=== PATIENT | female | born 1995 | race Caucasian/White ===

== ENCOUNTER 2016-11-15 10:57 | Emergency (ER) | payer OTHER ==
[~2016-11-15] VITALS: Ht 157.5 cm; Wt 60.1 kg
[~2016-11-15 10:57] MED LIST: MISCCAP80 PO
[2016-11-15 11:04] VITALS: Ht 157.5 cm; Wt 60.1 kg
[2016-11-15] MEDS ORDERED: ALBUT/IPRATROP 3MG/0.5MG NEB 3 ML VIAL INH STA (11:32)
[2016-11-15] MEDS ORDERED: ALBUT/IPRATROP 3MG/0.5MG NEB 3 ML VIAL ONE (11:33)
[2016-11-15 11:40] VITALS: O2SAT 99
[2016-11-15 11:54] LABS: BASO % 0.4 %; BASO ABS # 0.02 K/uL (0-0.2); COMPLETE YES; EOS % 2.4 %; HEMATOCRIT 39.8 % (37-47); LYMPH ABS # 1.85 K/uL (1.2-3.4); MEAN CELL VOLUME 88.8 fL (80-100); MEAN CORPUSCULAR HEMOGLOBIN 30.8 pg (25-34); MEAN CORPUSCULAR HGB CONC 34.7 g/dl (32-36); MEAN PLATELET VOLUME 9.8 fL (7.4-10.4); MONO % 8.2 %; PLATELET COUNT 176 K/uL (130-400); RED BLOOD COUNT 4.48 M/uL (4.2-5.4); WHITE BLOOD COUNT 4.62 K/uL (4.8-10.8)
--- NOTE | 2016-11-15 12:08 | DIAGNOSTIC IMAGING REPORT ---
CHEST ONE VIEW PORTABLE CLINICAL HISTORY: Shortness of breath and chest pain. COMPARISON STUDY: Chest radiograph July 29, 2016. FINDINGS: Lung volumes are normal. There is no pneumothorax or pleural effusion. Cardiac size is normal. Mediastinal contours are normal. There is no evidence of pulmonary edema. IMPRESSION: No acute cardiopulmonary findings. Electronically signed by: Tony Nava M.D. 11/15/2016 12:06 PM Dictated Date/Time: 11/15/2016 12:05 PM
[2016-11-15 12:09] LABS: BUN/CREATININE RATIO 10.8 (10-20); CALCIUM 9.2 mg/dl (8.5-10.1); CREATININE 0.83 mg/dl (0.60-1.20); POTASSIUM 3.8 mmol/L (3.5-5.1)
[2016-11-15 12:11] LABS: INR 0.9 (0.9-1.1); PROTHROMBIN TIME (PATIENT) 10.1 SECONDS (9.0-12.0)
[2016-11-15 12:13] LABS: ALB/GLOB RATIO 1.2 (0.9-2)
[2016-11-15] MEDS ORDERED: SODIUM CHLORIDE 0.9% 1000ML 1,000 ML IV STA (12:16)
[2016-11-15] MEDS ORDERED: OPTIRAY 320 IV PRN (12:30)
--- NOTE | 2016-11-15 13:00 | DIAGNOSTIC IMAGING REPORT ---
CT ANGIOGRAPHY OF THE CHEST, PULMONARY EMBOLUS PROTOCOL CLINICAL HISTORY: Difficulty breathing. Chest pain. Elevated d-dimer. COMPARISON STUDY: Chest CT November 23, 2015. TECHNIQUE: Following IV administration of 93 mL of Optiray-320, helical axial images of the chest were obtained utilizing the pulmonary embolus protocol. Maximal intensity projections and sagittal and coronal reformats were viewed on an independent 3D workstation. IV contrast was administered without complication. CT DOSE: 267.53 mGycm FINDINGS: No pulmonary emboli are identified. There is no evidence of thoracic aortic dissection. The size of the heart is normal. There is no pericardial effusion. There are no enlarged thoracic lymph nodes. The central airways are patent. No consolidation is present. There is no pneumothorax or pleural effusion. The bony thorax and upper abdomen are unremarkable. IMPRESSION: 1. No pulmonary emboli identified. 2. No acute intrathoracic findings. Electronically signed by: Tony Nava M.D. 11/15/2016 12:58 PM Dictated Date/Time: 11/15/2016 12:53 PM
--- NOTE | 2016-11-15 14:05 | EMERGENCY ROOM VISIT NOTE ---
ED Visit Note First contact with patient: 12:01 CHIEF COMPLAINT: Chest pain and slight shortness of breath 1 week HISTORY OF PRESENT ILLNESS: Patient is an otherwise healthy 21-year-old white female who presents to the emergency department for evaluation of left-sided chest pain. She states that her symptoms started about a week ago. They are located in the midsternal area, radiating slightly to the left. She states that it has been fairly constant in nature. She has tried to ache more the pain. She does know that it is slightly worse with deep breathing and she occasionally feels like she has to work hard to take a deep breath. She has been able to exercise, but notes the pain made it "difficult." She did not have to stop exercising due to her symptoms. She does note some discomfort through to her left back. She has not been ill with any upper respiratory symptoms, and denies cough, sputum production or wheezing. No fever or chills. She is on oral contraceptives, but does not smoke. She traveled 8 hours by car to [place] for . She does report a family history of "clots", but denies any specific diagnosis or diagnosed genetic clotting disorder. She rates her discomfort a 5/10. REVIEW OF SYSTEMS: Review of systems as per HPI. All other systems reviewed were negative. 10 systems reviewed. PMH: Electronic medical records are reviewed and summarized as above/below. See Problem List. SOCIAL HISTORY: Patient is a college from [place] who lives locally with roommates. Nonsmoker. Drinks alcohol socially. PHYSICAL EXAM: Vital Signs: Reviewed Nurse's notes. CONSTITUTIONAL: Patient is a well-appearing 21-year-old white female who is awake and alert and in no acute distress. EYES: Pupils equal, round, reactive to light and accommodation. EOMs intact without nystagmus. Sclera are anicteric. ENT: Tympanic membranes intact, with normal landmarks. External canals are clear. Oral and nasopharynx are clear. Mucous membranes are moist, no lesions , tongue and gums appear normal. NECK: No bruits auscultated. Supple without lymphadenopathy. No thyromegaly. No meningeal signs. Full active range of motion without discomfort. CARDIOVASCULAR: Regular rate and rhythm, with normal S1 and S2, no murmur or gallop or rub is heard. No carotid bruits auscultated. No JVD. Peripheral pulses easy to palpable. RESPIRATORY: Breath sounds equal and clear to auscultation without wheezes, rales, or rhonchi heard. Full and equal chest expansion without accessory muscle use or retractions. GI: Bowel sounds are present. Abdomen is soft, nontender, nondistended. No organomegaly. No pulsatile masses. No guarding or rebound. MUSCULOSKELETAL: Full range of motion of extremities x 4 with good strength. No cyanosis, edema, joint tenderness or swelling. No deformity. INTEGUMENTARY: No lesions or rash, normal skin turgor. NEUROLOGICAL: Alert, oriented, and cooperative. Cranial nerves, sensation and strength grossly intact. Pupils round, equal, and react to light, EOMs are full. LYMPH: No lymphadenopathy. EMERGENCY DEPARTMENT COURSE: The patient was seen and evaluated as above. Old records are reviewed. She does report that she has been here for chest pain in the past and has been told it is musculoskeletal in nature. Critical pathways had been implemented prior to my evaluation of the patient. She refused a DuoNeb. CBC with differential, CMP, coags, CK, CK-MB, [id number] d-dimer were performed. EKG was performed and was as noted below. EKG: Normal sinus rhythm at 75 beats per minute, no acute ischemic changes. No ectopy. Chest x-ray was unremarkable. Laboratory studies did not demonstrate any leukocytosis, anemia, electrolyte or liver function abnormalities. Cardiac enzymes are negative with symptoms greater than one week. Her d-dimer was elevated, and therefore CT angiography of the chest to evaluate for PE was ordered. Chest CT did not demonstrate any evidence for pulmonary embolus. The patient was reassured. Differential diagnosis includes acute myocardial infarction, acute coronary syndrome, myocarditis, pericarditis, pericardial effusions / tamponade, esophageal perforation, pulmonary embolism, pneumonia, pneumothorax , cardiomyopathy, congestive heart failure, anemia , COPD/asthma exacerbation, musculoskeletal, anxiety, costochondritis, among others. She was advised to rest and avoid any strenuous activity that exacerbate her symptoms and to follow up with her primary care provider if her symptoms are not improving. The patient rated her discomfort a 0/10 at discharge. CHEST ONE VIEW PORTABLE CLINICAL HISTORY: Shortness of breath and chest pain. COMPARISON STUDY: Chest radiograph July 29, 2016. FINDINGS: Lung volumes are normal. There is no pneumothorax or pleural effusion. Cardiac size is normal. Mediastinal contours are normal. There is no evidence of pulmonary edema. IMPRESSION: No acute cardiopulmonary findings. CT ANGIOGRAPHY OF THE CHEST, PULMONARY EMBOLUS PROTOCOL CLINICAL HISTORY: Difficulty breathing. Chest pain. Elevated d-dimer. COMPARISON STUDY: Chest CT November 23, 2015. TECHNIQUE: Following IV administration of 93 mL of Optiray-320, helical axial images of the chest were obtained utilizing the pulmonary embolus protocol. Maximal intensity projections and sagittal and coronal reformats were viewed on an independent 3D workstation. IV contrast was administered without complication. CT DOSE: 267.53 mGycm FINDINGS: No pulmonary emboli are identified. There is no evidence of thoracic aortic dissection. The size of the heart is normal. There is no pericardial effusion. There are no enlarged thoracic lymph nodes. The central airways are patent. No consolidation is present. There is no pneumothorax or pleural effusion. The bony thorax and upper abdomen are unremarkable. IMPRESSION: 1. No pulmonary emboli identified. 2. No acute intrathoracic findings. Problem List Medical Problems: (1) Abdominal pain Status: Resolved (2) Abdominal pain, left upper quadrant Status: Resolved (3) Chest pain Status: Resolved (4) Concussion Status: Resolved (5) Constipation Status: Resolved (6) Cough Status: Resolved (7) Dysuria Status: Resolved (8) LUQ abdominal pain Status: Resolved (9) Near syncope Status: Resolved (10) Precordial chest pain Status: Resolved (11) Right calf pain Status: Resolved (12) Shortness of breath Status: Resolved (13) Shortness of breath Status: Resolved (14) Sore throat Status: Resolved (15) Upper respiratory infection Status: Resolved Current/Historical Medications Scheduled Control Pills ( Control Pills), 1 TAB PO DAILY Allergies Coded Allergies: No Known Allergies (Unverified , 09/02/16) Vital Signs Date Time Temp Pulse Resp B/P Pulse Ox O2 Delivery O2 Flow Rate FiO2 11/15/16 14:24 36.9 65 20 99 Room Air 11/15/16 14:20 36.9 65 20 110/76 99 11/15/16 12:11 91 11/15/16 11:40 36.9 80 18 105/77 99 Room Air 11/15/16 11:40 99 Room Air 11/15/16 11:04 36.9 80 18 105/77 99 Room Air Laboratory Results 11/15/16 11:40 Red Blood Count 4.48, Mean Corpuscular Volume 88.8, Mean Corpuscular Hemoglobin 30.8, Mean Corpuscular Hemoglobin Concent 34.7, Mean Platelet Volume 9.8, Neutrophils (%) (Auto) 49.0, Lymphocytes (%) (Auto) 40.0, Monocytes (%) (Auto) 8.2, Eosinophils (%) (Auto) 2.4, Basophils (%) (Auto) 0.4, Neutrophils # (Auto) 2.26, Lymphocytes # (Auto) 1.85, Monocytes # (Auto) 0.38, Eosinophils # (Auto) 0.11, Basophils # (Auto) 0.02 11/15/16 11:40 Test 11/15/16 11:40 11/15/16 11:49 White Blood Count 4.62 K/uL (4.8-10.8) Red Blood Count 4.48 M/uL (4.2-5.4) Hemoglobin 13.8 g/dL (12.0-16.0) Hematocrit 39.8 % (37-47) Mean Corpuscular Volume 88.8 fL (80-100) Mean Corpuscular Hemoglobin 30.8 pg (25-34) Mean Corpuscular Hemoglobin Concent 34.7 g/dl (32-36) Platelet Count 176 K/uL (130-400) Mean Platelet Volume 9.8 fL (7.4-10.4) Neutrophils (%) (Auto) 49.0 % Lymphocytes (%) (Auto) 40.0 % Monocytes (%) (Auto) 8.2 % Eosinophils (%) (Auto) 2.4 % Basophils (%) (Auto) 0.4 % Neutrophils # (Auto) 2.26 K/uL (1.4-6.5) Lymphocytes # (Auto) 1.85 K/uL (1.2-3.4) Monocytes # (Auto) 0.38 K/uL (0.11-0.59) Eosinophils # (Auto) 0.11 K/uL (0-0.5) Basophils # (Auto) 0.02 K/uL (0-0.2) RDW Standard Deviation 41.9 fL (36.4-46.3) RDW Coefficient of Variation 13.0 % (11.5-14.5) Immature Granulocyte % (Auto) 0.0 % Immature Granulocyte # (Auto) 0.00 K/uL (0.00-0.02) Prothrombin Time 10.1 SECONDS (9.0-12.0) Prothromb Time International Ratio 0.9 (0.9-1.1) Activated Partial Thromboplast Time 25.2 SECONDS (21.0-31.0) Partial Thromboplastin Ratio 1.0 Anion Gap 11.0 mmol/L (3-11) Est Creatinine Clear Calc Drug Dose 84.8 ml/min Estimated GFR () 116.8 Estimated GFR (Non- 100.8 BUN/Creatinine Ratio 10.8 (10-20) Calcium Level 9.2 mg/dl (8.5-10.1) Total Bilirubin 0.5 mg/dl (0.2-1) Aspartate Amino Transf (AST/SGOT) 16 U/L (15-37) Alanine Aminotransferase (ALT/SGPT) 20 U/L (12-78) Alkaline Phosphatase 49 U/L (45-117) Total Creatine Kinase 58 U/L (26-192) Creatine Kinase MB 0.6 ng/ml (0.5-3.6) Creatine Kinase MB Ratio 1.0 (0-3.0) Total Protein 7.2 gm/dl (6.4-8.2) Albumin 3.9 gm/dl (3.4-5.0) Globulin 3.3 gm/dl (2.5-4.0) Albumin/Globulin Ratio 1.2 (0.9-2) Bedside D-Dimer > 450 ng/mlFEU (0-450) Medications Administered Medications (Trade) Dose Ordered Sig/Nghia Route Start Time Stop Time Status Last Admin Dose Admin Sodium Chloride (Nss 1000ml) 1,000 ml @ 999 mls/hr Q1H1M STAT IV 11/15/16 12:16 11/15/16 13:16 DC 11/15/16 12:47 999 MLS/HR Departure Information Impression Primary Impression: Chest pain Referrals [facility] (PCP) Patient Instructions My [facility] Additional Instructions Ibuprofen(Motrin, Advil) may be used for fever or pain. Use 600mg every six hours as needed. Take with food. Avoid using more than 2400mg in a 24 hour period. Do not use 2400mg per day for more than three consecutive days without physician direction. Prolonged inappropriate use can lead to stomach upset or ulcers. (AND/OR) Acetaminophen(Tylenol) may be used for fever or pain. Use 1000mg every six hours as needed. Avoid using more than 3000mg in a 24 hour period. Rest and drink plenty of fluids as tolerated. Continue current medications. Avoid strenuous activities and anything that worsens your pain. Resume normal activities once your symptoms resolve. Return to the ER immediately for worsening or persistent chest pain, abdominal pain, vomiting, fevers, chest pains, difficulty breathing, worsening of your condition, or as needed. Follow up with your primary physician in 2-3 days for a recheck of your current condition. Problem Qualifiers Primary Impression: Chest pain Chest pain type: precordial pain Qualified Codes: R07.2 - Precordial pain
[2016-11-15 14:20] VITALS: BP 110/76
[2016-11-15 14:24] VITALS: PULSE 65; TEMP 36.9; O2SAT 99
[2016-11-15] MEDS ORDERED: BCPILLS PO (21:33)
== END 2016-11-15 14:22 | disposition home or self-care (01) ==
LOC: C.EDB 10:58 → C.EDD 14:22
DX: R07.2 Precordial pain (principal)

== ENCOUNTER 2017-01-10 15:52 | Emergency (ER) | payer OTHER ==
[~2017-01-10] VITALS: Ht 157.5 cm; Wt 58.3 kg
[~2017-01-10 15:52] MED LIST changes: +BCPILLS PO; -MISCCAP80 PO
[2017-01-10 16:00] VITALS: TEMP 36.9; Ht 157.5 cm; Wt 58.3 kg
--- NOTE | 2017-01-10 17:52 | DIAGNOSTIC IMAGING REPORT ---
ULTRASOUND RIGHT VENOUS DOPP LOWER EXT UNILAT CLINICAL HISTORY: Right lower extremity pain and swelling COMPARISON STUDY: 07/29/2016 FINDINGS: Real-time and color flow Doppler imaging were performed. Flow was seen within the femoral, popliteal and calf veins with no intraluminal thrombus demonstrated. The saphenous vein is patent. IMPRESSION: No evidence of right lower extremity DVT. Electronically signed by: Brandon Traore M.D. 01/10/2017 5:51 PM Dictated Date/Time: 01/10/2017 5:50 PM
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
[2017-01-10 18:25] VITALS: BP 106/68; PULSE 86; O2SAT 98
== END 2017-01-10 18:26 | disposition home or self-care (01) ==
LOC: C.EDB 15:53 → C.EDD 18:26
DX: S70.11XA Contusion of right thigh, initial encounter (principal); M79.604 Pain in right leg; M79.89 Other specified soft tissue disorders; X58.XXXA Exposure to other specified factors, initial encounter; Z87.891 Personal history of nicotine dependence

== ENCOUNTER 2017-02-07 14:05 | Emergency (ER) | payer OTHER ==
[~2017-02-07] VITALS: Ht 157.5 cm; Wt 59.3 kg
[2017-02-07 14:05] VITALS: TEMP 36.8; Ht 157.5 cm; Wt 59.3 kg
[2017-02-07] MEDS ORDERED: SODIUM CHLORIDE 0.9% 1000ML 1,000 ML IV STA (14:14)
[2017-02-07] MEDS ORDERED: OPTIRAY 320 IV PRN (14:30)
[2017-02-07 14:36] LABS: BASO % 0.1 %; BASO ABS # 0.01 K/uL (0-0.2); COMPLETE YES; EOS % 0.5 %; IG% 0.1 %; LYMPH % 21.7 %; LYMPH ABS # 1.66 K/uL (1.2-3.4); MEAN CELL VOLUME 89.8 fL (80-100); MEAN CORPUSCULAR HEMOGLOBIN 31.2 pg (25-34); MEAN CORPUSCULAR HGB CONC 34.7 g/dl (32-36); MEAN PLATELET VOLUME 9.9 fL (7.4-10.4); MONO % 6.8 %; NEUT % 70.8 %; PLATELET COUNT 192 K/uL (130-400); RED BLOOD COUNT 4.23 M/uL (4.2-5.4); WHITE BLOOD COUNT 7.66 K/uL (4.8-10.8)
[2017-02-07 14:56] LABS: BUN/CREATININE RATIO 12.1 (10-20); CALCIUM 8.9 mg/dl (8.5-10.1); CREATININE 0.84 mg/dl (0.60-1.20); MAGNESIUM 2.2 mg/dl (1.8-2.4); POTASSIUM 3.8 mmol/L (3.5-5.1)
[2017-02-07 14:59] LABS: ALB/GLOB RATIO 1.2 (0.9-2)
--- NOTE | 2017-02-07 15:56 | EMERGENCY ROOM VISIT NOTE ---
History First contact with patient: 14:09 Chief Complaint: ABDOMINAL PAIN Stated Complaint: PAIN IN APPENDIX & VOMITING History of Present Illness The patient is a 21 year old female who presents to the Emergency Department by private vehicle for evaluation of her RIGHT lower quadrant abdominal pain. She reports that over the past week she's had decreased appetite. Yesterday she developed nausea and had vomiting last evening. She developed acute pain in the RIGHT lower quadrant which was concerning to her. She denies a previous surgeries on her abdomen. She did recently discontinue her oral contraception 2 weeks ago at her own choice. She has not had a menstrual period for 2 months. She is uncertain of her status. The patient rates her current discomfort as a 6/10. She is tried nothing [id number] for symptoms. She denies any fevers, chills, headaches, dizziness, lightheadedness , chest pain, palpitations, short of breath, hematemesis, hematochezia, melena, hematuria, or dysuria. Review of Systems A complete 10-point Review of Systems was discussed with the patient, with pertinent positives and negatives listed in the History of Present Illness. All remaining Review of Systems questions can be considered negative unless otherwise specified. Past Medical/Surgical History Medical Problems: (1) Abdominal pain (2) Abdominal pain, left upper quadrant (3) Chest pain (4) Concussion (5) Constipation (6) Cough (7) Dysuria (8) LUQ abdominal pain (9) Near syncope (10) No Known Active Medical Problems (11) Precordial chest pain (12) Right calf pain (13) Shortness of breath (14) Shortness of breath (15) Sore throat (16) Upper respiratory infection Family History Blood clots FH: heart disease FH: stroke Social History Smoking Status: Never Smoker Smokeless Tobacco Use: No Alcohol Use: occasionally Drug Use: none Marital Status: single Housing Status: lives with roommate Occupation Status: [employer] student Current/Historical Medications No Active Prescriptions or Reported Meds Allergies Coded Allergies: No Known Allergies (Unverified , 02/07/17) Physical Exam Vital Signs Date Time Temp Pulse Resp B/P Pulse Ox O2 Delivery O2 Flow Rate FiO2 02/07/17 17:42 46 16 99/73 98 02/07/17 16:29 68 20 98/68 98 Room Air 02/07/17 14:05 36.8 96 18 110/78 98 Room Air Pain Rating (0-10): 6 Physical Exam VITAL SIGNS - Vital signs and nursing notes were reviewed. GENERAL - 21-year-old female appearing her stated age who is in no acute distress. Communicates well with provider and answers questions appropriately. LUNGS - Chest wall symmetric without accessory muscle use, intercostals retractions, or central cyanosis. Normal vesicular breath sounds CTA B/L. No wheezes, rales, or rhonchi appreciated. CARDIAC - RRR with S1/S2. No murmur, rubs, or gallops appreciated. ABDOMEN - Abdominal contour flat and without pulsations or visible masses. BS normoactive all four quadrants. Moderate tenderness to palpation appreciated in the RIGHT lower quadrant. No guarding. No Rebound Tenderness. Negative Rovsing' s. Negative Fitzpatrick's. No palpable masses, hepatosplenomegaly, or ascites noted. PSYCH - A&Ox3 and cooperates fully with examiner. Pt is very pleasant and interacts well with examiner. Medical Decision & Procedures ER Provider Diagnostic Interpretation: Radiological imaging and reports were reviewed by myself. Radiologist's Interpretation as follows: EXAMINATION: PELVIC ULTRASOUND CLINICAL HISTORY: Right-sided pelvic pain COMPARISON STUDY: CT scan dated 12/08/2015 FINDINGS: The uterus measured 7.2 x 2.9 x 4.2 cm. The endometrial stripe measured 7 mm. The right ovary measured 39 x 21 x 27 mm. The left ovary measured 34 x 20 x 21 mm. There is no ultrasonographic evidence of ovarian torsion. It should be noted that ovarian torsion can be present with normal Doppler ultrasonographic findings. There is minimal free fluid, likely physiologic. IMPRESSION: Normal uterus and ovaries. Minimal free fluid likely physiologic CT ABD/PELVIS IV AND ORAL CONT CLINICAL HISTORY: Right lower quadrant abdominal pain COMPARISON STUDY: 12/08/2015 TECHNIQUE: Following the IV administration of 93 mL of Optiray-320, CT scan of the abdomen and pelvis was performed from the lung bases to the proximal femurs. Images are reviewed in the axial, sagittal, and coronal planes. IV contrast was administered without complication. CT DOSE: 352.45 mGycm FINDINGS: Lower chest: The heart is normal in size and configuration, without pericardial effusion. The lung bases and pleural spaces are clear. Liver: The contrast-enhanced liver is normal in size, contour, and attenuation. There is no intrahepatic biliary ductal dilatation. The hepatic veins and portal veins are patent. Gallbladder: Unremarkable. Spleen: Normal in size and attenuation. Pancreas: Unremarkable. Adrenal glands: Unremarkable. Kidneys: There is symmetric renal cortical enhancement. The kidneys are normal in size without hydronephrosis. Bowel: There are no transition zones indicate bowel obstruction. There are no findings to indicate acute diverticulitis. The appendix is at the upper limits of normal thickness. There are no periappendiceal inflammatory changes. Peritoneum: There is minimal free fluid, likely physiologic Vasculature: The abdominal aorta is normal in course and caliber. Adenopathy: None. Pelvic viscera: The bladder, and pelvic viscera are unremarkable. Skeletal structures: No destructive osseous lesions are seen. IMPRESSION: 1. No acute intra-abdominal or pelvic findings 2. No evidence of bowel obstruction. No evidence of free air 3. No CT evidence of acute appendicitis Laboratory Results 02/07/17 14:24 Red Blood Count 4.23, Mean Corpuscular Volume 89.8, Mean Corpuscular Hemoglobin 31.2, Mean Corpuscular Hemoglobin Concent 34.7, Mean Platelet Volume 9.9, Neutrophils (%) (Auto) 70.8, Lymphocytes (%) (Auto) 21.7, Monocytes (%) (Auto) 6.8, Eosinophils (%) (Auto) 0.5, Basophils (%) (Auto) 0.1, Neutrophils # (Auto) 5.42, Lymphocytes # (Auto) 1.66, Monocytes # (Auto) 0.52, Eosinophils # (Auto) 0.04, Basophils # (Auto) 0.01 02/07/17 14:24 Test 02/07/17 14:24 02/07/17 16:20 White Blood Count 7.66 K/uL (4.8-10.8) Red Blood Count 4.23 M/uL (4.2-5.4) Hemoglobin 13.2 g/dL (12.0-16.0) Hematocrit 38.0 % (37-47) Mean Corpuscular Volume 89.8 fL (80-100) Mean Corpuscular Hemoglobin 31.2 pg (25-34) Mean Corpuscular Hemoglobin Concent 34.7 g/dl (32-36) Platelet Count 192 K/uL (130-400) Mean Platelet Volume 9.9 fL (7.4-10.4) Neutrophils (%) (Auto) 70.8 % Lymphocytes (%) (Auto) 21.7 % Monocytes (%) (Auto) 6.8 % Eosinophils (%) (Auto) 0.5 % Basophils (%) (Auto) 0.1 % Neutrophils # (Auto) 5.42 K/uL (1.4-6.5) Lymphocytes # (Auto) 1.66 K/uL (1.2-3.4) Monocytes # (Auto) 0.52 K/uL (0.11-0.59) Eosinophils # (Auto) 0.04 K/uL (0-0.5) Basophils # (Auto) 0.01 K/uL (0-0.2) RDW Standard Deviation 43.4 fL (36.4-46.3) RDW Coefficient of Variation 13.3 % (11.5-14.5) Immature Granulocyte % (Auto) 0.1 % Immature Granulocyte # (Auto) 0.01 K/uL (0.00-0.02) Anion Gap 6.0 mmol/L (3-11) Est Creatinine Clear Calc Drug Dose 83.8 ml/min Estimated GFR () 115.1 Estimated GFR (Non- 99.4 BUN/Creatinine Ratio 12.1 (10-20) Calcium Level 8.9 mg/dl (8.5-10.1) Magnesium Level 2.2 mg/dl (1.8-2.4) Total Bilirubin 0.4 mg/dl (0.2-1) Aspartate Amino Transf (AST/SGOT) 16 U/L (15-37) Alanine Aminotransferase (ALT/SGPT) 29 U/L (12-78) Alkaline Phosphatase 55 U/L (45-117) Total Protein 6.9 gm/dl (6.4-8.2) Albumin 3.8 gm/dl (3.4-5.0) Globulin 3.1 gm/dl (2.5-4.0) Albumin/Globulin Ratio 1.2 (0.9-2) Lipase 181 U/L (73-393) Urine Color YELLOW Urine Appearance CLEAR (CLEAR) Urine pH 7.0 (4.5-7.5) Urine Specific [place] 1.004 (1.000-1.030) Urine Protein NEG (NEG) Urine Glucose (UA) NEG (NEG) Urine Ketones NEG (NEG) Urine Occult Blood NEG (NEG) Urine Nitrite NEG (NEG) Urine Bilirubin NEG (NEG) Urine Urobilinogen NEG (NEG) Urine Leukocyte Esterase NEG (NEG) Urine Test NEG (NEG) Medications Administered Medications (Trade) Dose Ordered Sig/Nghia Route Start Time Stop Time Status Last Admin Dose Admin Sodium Chloride (Nss 1000ml) 1,000 ml @ 80 mls/hr [id number] STAT IV 02/07/17 14:14 02/07/17 17:53 DC 02/07/17 14:37 80 MLS/HR ED Course Patient was seen and evaluated by myself. Labs were drawn, saline lock in place. The patient was hydrated with normal saline pelvic ultrasound was obtained. CT of the abdomen and pelvis with IV and oral contrast was ordered. Laboratory results demonstrate no acute leukocytosis, worrisome anemia, or bandemia. The patient has no significant electrolyte abnormalities. Urinalysis does not suggest infection. Urine was negative. Ultrasound and CT results as above. Laboratory results and imaging studies were reviewed with the patient who acknowledges understanding. She was encouraged to follow-up with [facility] from today's visit. She was educated on worrisome symptoms for return visit to the emergency department. Patient discharged home afebrile and in good condition. Medical Decision Given the patient's presentation and stated complaints, I did elect to perform the above-mentioned workup. The patient presents today with progressively worsening pain to the RIGHT lower quadrant. She has no fever leukocytosis. Imaging studies are otherwise unremarkable. The patient has no vaginal bleeding. She recently discontinued her oral contraception. I questioned the patient could be experiencing symptoms related to change in hormone balance after discontinuing her medications. She will follow closely with [facility]. She questions if this could be related to an STI. After further questioning, she declines any risks for STI. She's had no vaginal discharge or drainage. She declines pelvic exam or STI testing. The patient will follow-up with fevers to health services or return for any changing or worsening symptoms. Patient discharged home afebrile and in good condition. In the evaluation and treatment of this patient, the following differential diagnoses were considered: Appendicitis, Diverticulitis, Diverticulosis, Colitis , Ischemic Colitis, Inflammatory Bowel Disease, Irritable Bowel Disease, Ovarian Torsion, Kidney Stone, Pyelonephritis, Hydronephrosis, Cholecystitis, Ascending Cholangitis, Choledocholithiasis, GERD, Kidney Stone, STI, Bladder Cancer, Amongst Others. Impression Primary Impression: Right lower quadrant abdominal pain Departure Information Dispostion Home / Self-Care Condition GOOD Prescriptions No Active Prescriptions or Reported Meds Referrals [facility] (PCP) Patient Instructions Abdominal Pain - [facility], My [facility] Additional Instructions You have been treated in the Emergency Department your Abdominal Pain. Laboratory results and imaging studies have ruled out any emergent causes for your abdominal pain which would warrant admission or surgery. For pain control, you can use the following [id number] medicines (if >12 yo): - Regular strength (325mg/tab) Tylenol (acetaminophen) 2 tabs every 4-6 hours as needed. Do not exceed 12 tablets in a 24 hour period. Avoid taking more than 4 grams (4000 mg) of Tylenol per day. This includes any other sources of acetaminophen you may take on a regular basis. - Regular strength (200 mg/tab) Advil (ibuprofen) 1-2 tabs every 4-6 hours as needed. Do not exceed a dose of 3200 mg per day. Drink plenty of water and stay well hydrated. As with any trip to the Emergency Department, you should follow-up with your Primary Care Provider from today's visit. Return to the emergency department if your symptoms persist despite treatment plan outlined above or if the following symptoms occur: increased fevers, chills , worsening nausea/vomiting, blood in your stool or urine.
--- NOTE | 2017-02-07 16:24 | DIAGNOSTIC IMAGING REPORT ---
EXAMINATION: PELVIC ULTRASOUND CLINICAL HISTORY: Right-sided pelvic pain COMPARISON STUDY: CT scan dated 12/08/2015 FINDINGS: The uterus measured 7.2 x 2.9 x 4.2 cm. The endometrial stripe measured 7 mm. The right ovary measured 39 x 21 x 27 mm. The left ovary measured 34 x 20 x 21 mm. There is no ultrasonographic evidence of ovarian torsion. It should be noted that ovarian torsion can be present with normal Doppler ultrasonographic findings. There is minimal free fluid, likely physiologic. IMPRESSION: Normal uterus and ovaries. Minimal free fluid likely physiologic Electronically signed by: Brandon Traore M.D. 02/07/2017 4:22 PM Dictated Date/Time: 02/07/2017 4:20 PM
[2017-02-07 16:51] LABS: URINE APPEARANCE CLEAR (CLEAR); URINE BILIRUBIN NEG (NEG); URINE COLOR YELLOW; URINE NITRITE NEG (NEG); URINE SPECIFIC GRAVITY 1.004 (1.000-1.030); UROBILINOGEN NEG (NEG); ZZUR CULT IF INDIC CLEAN CATCH NO
[2017-02-07 16:52] LABS: MANUAL MICROSCOPIC REQUIRED? NO; REVIEW REQ? NO
--- NOTE | 2017-02-07 16:58 | DIAGNOSTIC IMAGING REPORT ---
CT ABD/PELVIS IV AND ORAL CONT CLINICAL HISTORY: Right lower quadrant abdominal pain COMPARISON STUDY: 12/08/2015 TECHNIQUE: Following the IV administration of 93 mL of Optiray-320, CT scan of the abdomen and pelvis was performed from the lung bases to the proximal femurs. Images are reviewed in the axial, sagittal, and coronal planes. IV contrast was administered without complication. CT DOSE: 352.45 mGycm FINDINGS: Lower chest: The heart is normal in size and configuration, without pericardial effusion. The lung bases and pleural spaces are clear. Liver: The contrast-enhanced liver is normal in size, contour, and attenuation. There is no intrahepatic biliary ductal dilatation. The hepatic veins and portal veins are patent. Gallbladder: Unremarkable. Spleen: Normal in size and attenuation. Pancreas: Unremarkable. Adrenal glands: Unremarkable. Kidneys: There is symmetric renal cortical enhancement. The kidneys are normal in size without hydronephrosis. Bowel: There are no transition zones indicate bowel obstruction. There are no findings to indicate acute diverticulitis. The appendix is at the upper limits of normal thickness. There are no periappendiceal inflammatory changes. Peritoneum: There is minimal free fluid, likely physiologic Vasculature: The abdominal aorta is normal in course and caliber. Adenopathy: None. Pelvic viscera: The bladder, and pelvic viscera are unremarkable. Skeletal structures: No destructive osseous lesions are seen. IMPRESSION: 1. No acute intra-abdominal or pelvic findings 2. No evidence of bowel obstruction. No evidence of free air 3. No CT evidence of acute appendicitis Electronically signed by: Brandon Traore M.D. 02/07/2017 4:56 PM Dictated Date/Time: 02/07/2017 4:50 PM
[2017-02-07 17:42] VITALS: BP 99/73; PULSE 46; O2SAT 98
== END 2017-02-07 17:43 | disposition home or self-care (01) ==
LOC: C.EDB 14:05 → C.EDC 17:43
DX: R10.31 Right lower quadrant pain (principal); Z82.49 Family history of ischemic heart disease and other diseases of the circulatory system